=== PATIENT | female | born 1955 | race Caucasian/White ===

== ENCOUNTER 2017-08-06 05:48 | Emergency (ER) | payer OTHER ==
[~2017-08-06] VITALS: Ht 154.9 cm; Wt 53.5 kg
[2017-08-06 05:54] VITALS: BP 149/97
[2017-08-06] MEDS ORDERED: LOPRESSOR25 PO (06:01)
[2017-08-06] MEDS ORDERED: TIROSINT112 MCG PO (06:01)
[2017-08-06] MEDS ORDERED: IBUPROFEN 200200 M1 PO (06:02)
[2017-08-06] MEDS ORDERED: DUAVEE 0.45-201 EACH PO (06:02)
[2017-08-06] MEDS ORDERED: KEFLEX500 M1 PO (06:23)
== END 2017-08-06 06:57 | disposition home or self-care (01) ==
LOC: ER 05:48
DX: S50.812D Abrasion of left forearm, subsequent encounter (principal); Z48.01 Encounter for change or removal of surgical wound dressing; Z88.2 Allergy status to sulfonamides; V89.2XXD Person injured in unspecified motor-vehicle accident, traffic, subsequent encounter

== ENCOUNTER → 2017-08-07 | Outpatient (CLI) | payer OTHER ==
[~2017-08-07] MED LIST: DUAVEE 0.45-201 EACH PO; IBUPROFEN 200200 M1 PO; KEFLEX500 M1 PO; LOPRESSOR25 PO; TIROSINT112 MCG PO
== END ==
LOC: HYPER 06:58
DX: S51.802A Unspecified open wound of left forearm, initial encounter (principal); V29.10XA Motorcycle passenger injured in collision with unspecified motor vehicles in nontraffic accident, initial encounter; X58.XXXA Exposure to other specified factors, initial encounter; Y93.89 Activity, other specified; Y92.89 Other specified places as the place of occurrence of the external cause; Y99.8 Other external cause status

== ENCOUNTER → 2017-08-12 | Outpatient (CLI) | payer OTHER | LOC: HYPER 07:02 | DX: S51.812D Laceration without foreign body of left forearm, subsequent encounter (principal); X58.XXXD Exposure to other specified factors, subsequent encounter ==

== ENCOUNTER → 2017-08-19 | Outpatient (CLI) | payer OTHER | LOC: HYPER 06:50 | DX: S51.812D Laceration without foreign body of left forearm, subsequent encounter (principal); S51.012D Laceration without foreign body of left elbow, subsequent encounter; X58.XXXD Exposure to other specified factors, subsequent encounter ==

== ENCOUNTER → 2017-08-27 | Outpatient (CLI) | payer OTHER | LOC: HYPER 06:53 | DX: S51.802D Unspecified open wound of left forearm, subsequent encounter (principal); V29.1 Motorcycle passenger injured in collision with other and unspecified motor vehicles in nontraffic accident ==

== ENCOUNTER → 2017-09-04 | Outpatient (CLI) | payer OTHER | LOC: HYPER 06:51 | DX: S51.802D Unspecified open wound of left forearm, subsequent encounter (principal); X58.XXXD Exposure to other specified factors, subsequent encounter; V29.1 Motorcycle passenger injured in collision with other and unspecified motor vehicles in nontraffic accident ==

== ENCOUNTER → 2017-09-16 | Outpatient (CLI) | payer OTHER | LOC: HYPER 06:51 | DX: S51.012D Laceration without foreign body of left elbow, subsequent encounter (principal); V29.10XA Motorcycle passenger injured in collision with unspecified motor vehicles in nontraffic accident, initial encounter; X58.XXXD Exposure to other specified factors, subsequent encounter ==

== ENCOUNTER → 2018-01-07 | Outpatient (CLI) | payer OTHER | LOC: HYPER 06:54 | DX: B43.2 Subcutaneous pheomycotic abscess and cyst (principal); E07.89 Other specified disorders of thyroid ==

== ENCOUNTER → 2018-01-22 | Outpatient (CLI) | payer OTHER | LOC: HYPER 06:50 | DX: B43.2 Subcutaneous pheomycotic abscess and cyst (principal); E07.89 Other specified disorders of thyroid ==